=== PATIENT | male | born 2000 | race Two or more races ===

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

== ENCOUNTER → 2021-02-01 | Outpatient (CLI) | payer BC ==
--- NOTE | 2021-02-01 12:29 | REP ---
INDICATION: PAIN IN RIGHT KNEE. COMPARISON: 10/26/2020 the latest prior TECHNIQUE: Sagittal spin-echo proton density, T2 STIR and T2 FLASH. Coronal spin-echo proton density and fat suppressed proton density. Axial fat suppressed proton density. FINDINGS: There is marked truncation of the posterior horn of the lateral meniscus and seen in conjunction with a new rhomboid shaped signal void anterior to the anterior horn. The anterior and posterior horns of the medial meniscus are unchanged. The anterior and posterior cruciate ligaments are again seen to be intact. The quadriceps and patellar tendons are again seen to be intact. The medial and lateral collateral ligaments are again seen to be intact, however, there is T2 hyper signal seen within and surrounding the lateral collateral ligament. This represents a change. The medial and lateral patellar retinacula are again seen to be intact. A joint effusion has developed since the last exam. There is no significant change in the appearance of the articular cartilages or the marrow signal. IMPRESSION: 1. There is a bucket-handle tear of the lateral meniscus. 2. There is lateral collateral ligamentous sprain. 3. There is a joint effusion <Electronically signed by Daniel Sexton > 02/01/21 [id number]
== END ==
LOC: M RAD 10:41
PROVIDERS: ATTEND Orthopaedic Surgery
DX: S83.251A Bucket-handle tear of lateral meniscus, current injury, right knee, initial encounter (principal); S83.421A Sprain of lateral collateral ligament of right knee, initial encounter; M25.461 Effusion, right knee; X58.XXXA Exposure to other specified factors, initial encounter; Y92.9 Unspecified place or not applicable; Y99.9 Unspecified external cause status

== ENCOUNTER → 2021-06-19 | Outpatient (REF) | payer BC | LOC: M WUC 11:35 | PROVIDERS: ATTEND Physician Assistant | DX: J02.9 Acute pharyngitis, unspecified (principal) ==

== ENCOUNTER 2023-11-28 05:50 | Emergency (ER) | payer BC, SELFPAY ==
[~2023-11-28] VITALS: Ht 188 cm; Wt 145.4 kg
[~2023-11-28 05:50] MED LIST changes: +METH60CA PO; -METH60CA2 PO
[2023-11-28 07:10] VITALS: BP 140/79; TEMP 98.1; O2SAT 99
[2023-11-28] MEDS ORDERED: MELO7.5T35 PO (07:14)
== END 2023-11-28 07:25 | disposition home or self-care (01) ==
LOC: M ED 05:50
DX: M25.561 Pain in right knee (principal); Z98.890 Other specified postprocedural states; F41.9 Anxiety disorder, unspecified; Z79.899 Other long term (current) drug therapy

== ENCOUNTER → 2024-08-08 | Outpatient (CLI) | payer BC ==
[~2024-08-08] MED LIST changes: +MELO7.5T35 PO
== END ==
LOC: M RAD 14:48
PROVIDERS: ATTEND Student in an Organized Health Care Education/Training Program
DX: S83.271A Complex tear of lateral meniscus, current injury, right knee, initial encounter (principal); M23.311 Other meniscus derangements, anterior horn of medial meniscus, right knee; M23.251 Derangement of posterior horn of lateral meniscus due to old tear or injury, right knee; M25.461 Effusion, right knee; M25.561 Pain in right knee; Y93.9 Activity, unspecified; Y92.9 Unspecified place or not applicable

== ENCOUNTER → 2025-01-01 | Outpatient (CLI) | payer BC | LOC: M SOG 06:54 | PROVIDERS: ATTEND Neuromusculoskeletal Medicine, Sports Medicine | DX: M25.561 Pain in right knee (principal) ==